=== PATIENT | female | born 1960 | race Caucasian/White ===

== ENCOUNTER 2024-10-02 05:17 | Emergency (ER) | payer SELFPAY ==
[~2024-10-02] VITALS: Ht 172.7 cm; Wt 128.4 kg
[2024-10-02 05:43] LABS: BASOPHILS # (AUTO) 0.03 K/uL (0.00-0.20); BASOPHILS % (AUTO) 0.3 % (0.0-5.0); EOSINOPHILS # (AUTO) 0.17 K/uL (0.00-0.70); EOSINOPHILS % (AUTO) 1.6 % (0.0-8.0); HEMATOCRIT 39.3 % (36-48); IMMATURE GRANULOCYTE ABSOLUTE 0.03 K/uL (0-1); LYMPHOCYTES # (AUTO) 2.9 K/uL (1.0-4.8); LYMPHOCYTES % (AUTO) 27.1 % (21.0-51.0); MEAN CORPUSCULAR HEMOGLOBIN 31.2 pg (27.0-33.0); MEAN CORPUSCULAR HGB CONC 32.8 g/dL (32.0-36.0); MEAN CORPUSCULAR VOLUME 95.2 fL (79-99); MONOCYTES # (AUTO) 1.3 K/uL (0.1-1.0); MONOCYTES % (AUTO) 12.4 % (3.0-13.0); NEUTROPHILS # (AUTO) 6.3 K/uL (1.8-7.7); NEUTROPHILS % (AUTO) 58.3 % (40.0-77.0); PLATELET COUNT (AUTO) 350 K/uL (130-400); RED BLOOD CELL COUNT(AUTO) 4.13 MIL/uL (4.00-5.50); RED CELL DISTRIBUTION WIDTH 13.1 % (11.0-15.5); WHITE BLOOD COUNT (AUTO) 10.8 K/uL (4.8-10.8)
--- NOTE | 2024-10-02 05:50 | ERN ---
General Chief Complaint: Chest Pain Stated Complaint: RT SIDED CHEST PAIN RADIATING TO BACK Time Seen by MD: 05:22 Source: patient History of Present Illness Initial Comments PATIENT IS A 64-YEAR-OLD FEMALE COMING IN TO BE EVALUATED FOR RIGHT-SIDED CHEST PAIN. PATIENT STATES THAT THE CHEST PAIN HAS BEEN ON AND OFF FOR SEVERAL MONTHS SHE WAS SEEN BEFORE AND DIAGNOSED WITH COSTOCHONDRITIS. PATIENT DOES HAVE A HISTORY OF FIBROMYALGIA BUT STATES THAT THE PAIN HAS BEEN ON AND OFF AND OF TWO DAYS AGO STARTED PRESENTING MORE OFTEN AND MORE INTENSE. Allergies: Coded Allergies: lisinopril (Unverified Allergy, Unknown, 10/02/24) Past Medical History Past Medical History: Asthma, Fibromyalgia, Hypertension, Other Medical History Other: PAD, COSTOCHONDRITIS Past Surgical History: Other, Surgical History Other: RT ARM ROS Dictation CONSTITUTIONAL: NO CHILLS, NO FEVER, NO WEAKNESS, NO DIAPHORESIS, NO MALAISE. HEAD/FACE: NO SIGNS OF TRAUMA. EENT: NO EYE PAIN, NO BLURRED VISION, NO TEARING, NO DOUBLE VISION, NO EAR PAIN, NO EAR DISCHARGE, NO NOSE PAIN, NO NASAL CONGESTION, NO THROAT PAIN, NO THROAT SWELLING, NO MOUTH PAIN. RESPIRATORY: NO COUGH, NO ORTHOPNEA, NO SOB, NO STRIDOR, NO WHEEZING. CARDIOVASCULAR: NO CHEST PAIN, NO EDEMA, NO PALPITATIONS, NO SYNCOPE. GASTROINTESTINAL/ABDOMINAL: ABDOMINAL PAIN, NO CONSTIPATION, NO DIARRHEA, NO NAUSEA, NO VOMITING. GENITOURINARY: NO ABNORMAL DISCHARGE, NO DYSURIA, NO FREQUENT URINATION, NO HEMATURIA. NO COMPLAINTS OF PAIN IN THE GENITALS. MUSCULOSKELETAL: NO BACK PAIN, NO GOUT, NO JOINT PAIN, NO JOINT SWELLING, NO MUSCLE PAIN, NO MUSCLE STIFFNESS, NO NECK PAIN. INTEGUMENTARY: NO CHANGE IN COLOR, NO CHANGE IN HAIR/NAILS, NO DRYNESS, NO LESION, NO LUMPS, NO RASH. NEUROLOGICAL/PSYCH: NO ANXIETY, NOT DEPRESSED, NO EMOTIONAL PROBLEM, NO HEADACHE, NO NUMBNESS, NO PRE-EXISTING DEFICIT, NO HISTORY OF SEIZURES, NO TREMORS, NO WEAKNESS. HEMATOLOGIC/LYMPHATIC: NOT ANEMIC, NO HISTORY OF BLOOD CLOTS, NO APPARENT BLEEDING, NO BRUISING, GLANDS NOT SWOLLEN. ALL SYSTEMS NEGATIVE, EXCEPT NOTED. Physical Exam Physical Exam Dictation VITAL SIGNS: REVIEWED. GENERAL APPEARANCE: ALERT, ORIENTED X3, NO ACUTE DISTRESS, OBESE. HEAD AND FACE: NON-TRAUMATIC. EYES: PERRL, PINK CONJUNCTIVAS, EYELID NO TRAUMA, ANTERIOR CHAMBER CLEAR. EARS: PINNAS INTACT AND NO SIGNS OF TRAUMA OR ERYTHEMA. EAR CANALS CLEAR AND NO DISCHARGE. TMS NO ERYTHEMA. NOSE: NO DISCHARGE, NO BLEEDING. OROPHARYNX: MOUTH NORMAL, TEETH NO CARIES, TONGUE PINK. PHARYNX CLEAR, NO ERYTHEMA. TONSILS NO EXUDATES, NO ABSCESSES NOTED. MUCOUS MEMBRANE MOIST. NECK: SUPPLE, NON-TENDER, NO THYROMEGALY, NO MASSES, NO JVD, NO BRUITS. BREAST: DEFERRED. CHEST: TENDERNESS, NO CREPITUS, NO PARADOXICAL MOVEMENT, NO RETRACTIONS. LUNGS: CLEAR, WELL-VENTILATED, SYMMETRIC, NO RALES, NO WHEEZING, NO RHONCHI, NO STRIDOR, GOOD BREATH SOUNDS BILATERALLY. HEART: REGULAR RATE, REGULAR RHYTHM, NO MURMUR, NO GALLOPS. VASCULAR: NO PERIPHERAL EDEMA. ABDOMEN: SOFT, POSITIVE BOWEL SOUNDS, NONDISTENDED, NO GUARDING, NONTENDER, NO REBOUND, NO MASSES NO HEPATOMEGALY, NO SPLENOMEGALY, NO JOHNSON'S SIGN, NO HERNIAS. RECTAL: DEFERRED. GENITAL: DEFERRED. NEUROLOGICAL: NORMAL SPEECH, GROSS MOTOR FUNCTION INTACT, GROSS SENSORY FUNCTION INTACT. MUSCULOSKELETAL: NECK NONTENDER, FULL RANGE OF MOTION, BACK NONTENDER, FULL RANGE OF MOTION. EXTREMITIES: NONTENDER, FULL RANGE OF MOTION. SKIN: COLOR PINK, DRY, NO TURGOR, NO RASH, NO LACERATIONS, NO ABRASIONS, NO C ONTUSIONS. LYMPHATICS: DEFERRED. Results Laboratory and Microbiology Lab and Micro Result Laboratory Tests Test 10/02/24 05:30 White Blood Count 10.8 K/uL (4.8-10.8) Red Blood Count 4.13 MIL/uL (4.00-5.50) Hemoglobin 12.9 g/dL (12.0-16.0) Hematocrit 39.3 % (36-48) Mean Corpuscular Volume 95.2 fL (79-99) Mean Corpuscular Hemoglobin 31.2 pg (27.0-33.0) Mean Corpuscular Hemoglobin Concent 32.8 g/dL (32.0-36.0) Red Cell Distribution Width 13.1 % (11.0-15.5) Platelet Count 350 K/uL (130-400) Mean Platelet Volume 9.4 fL (7.5-10.5) Immature Granulocyte % (Auto) 0.3 % (0-1) Neutrophils (%) (Auto) 58.3 % (40.0-77.0) Lymphocytes (%) (Auto) 27.1 % (21.0-51.0) Monocytes (%) (Auto) 12.4 % (3.0-13.0) Eosinophils (%) (Auto) 1.6 % (0.0-8.0) Basophils (%) (Auto) 0.3 % (0.0-5.0) Neutrophils # (Auto) 6.3 K/uL (1.8-7.7) Lymphocytes # (Auto) 2.9 K/uL (1.0-4.8) Monocytes # (Auto) 1.3 K/uL (0.1-1.0) H Eosinophils # (Auto) 0.17 K/uL (0.00-0.70) Basophils # (Auto) 0.03 K/uL (0.00-0.20) Absolute Immature Granulocyte (auto 0.03 K/uL (0-1) Nucleated Red Blood Cells 0.0 % (0.0-0.19) Prothrombin Time 10.2 SEC (9.6-11.6) Prothromb Time International Ratio 0.94 (0.85-1.15) Activated Partial Thromboplast Time 25.5 SEC (26.3-35.5) L Sodium Level 141 mmol/L (136-145) Potassium Level 4.0 mmol/L (3.5-5.1) Chloride Level 105 mmol/L (101-111) Carbon Dioxide Level 25 mmol/L (21-32) Blood Urea Nitrogen 13 mg/dL (7-18) Creatinine 1.0 mg/dL (0.5-1.0) Glomerular Filtration Rate Calc 64 mL/min (>90) Random Glucose 133 mg/dL (70-105) H Total Calcium 8.9 mg/dL (8.5-10.1) Magnesium Level 1.60 mg/dL (1.80-2.40) L Total Creatine Kinase 67 U/L (21-232) Troponin I High Sensitivity 5 ng/L (4-50) B-Type Natriuretic Peptide 44 pg/mL (0-100) Lipase 30 U/L (16-77) Labs Reviewed?: Yes EKG/XRAY/US/CT/MRI EKG Comment 10/02/2024 TIME 5:29 A.M. VENTRICULAR RATE 109 SINUS TACHYCARDIA AL [address] WAVE ELEVATION OR DEPRESSION MDM MDM: DIFFERENTIAL DIAGNOSIS: RATIONALE: TESTS CONSIDERED AND ORDERED SECONDARY TO SHARED DECISION MAKING INCLUDE: PREVIOUS OUTSIDE RECORDS REVIEWED: OLD ER VISITS. RISK OF COMPLICATION AND/OR MORBIDITY OR MORTALITY OF PATIENT MANAGEMENT: NONE MEDICATIONS-PER MEDICATION RECONCILIATION NEED FOR HOSPITALIZATION: PATIENT DOES NOT MEET CRITERIA FOR HOSPITALIZATION. NEED FOR EMERGENCY MAJOR/MINOR SURGERY: NO THERE ARE NO SOCIAL CONCERNS WITH THIS PATIENT. PRESCRIPTION DRUG MANAGEMENT PRESCRIPTIONS WILL INCLUDE SYMPTOMATIC CARE PATIENT'S PRIOR EXTERNAL MEDICAL RECORDS FROM OTHER ER VISITS WERE REVIEWED BY ME INDICATED. PRIOR TESTING AND RESULTS FROM PREVIOUS VISITS WERE REVIEWED. PRIOR TESTS WERE TAKEN INTO ACCOUNT WITH MEDICAL DECISION MAKING AND RESOURCE UTILIZATION, INDEPENDENT HISTORIAN/HISTORIANS WERE USED TO OBTAIN COMPLETE MEDICAL HISTORY. I INDEPENDENTLY INTERPRETED THE TEST THAT WERE PERFORMED, RESULTS WERE REVIEWED BY ME AND CONSIDERED FINDINGS ON RADIOLOGY IF ORDERED. MEDICAL MANAGEMENT AND EXAMINATION INTERPRETATION DISCUSSIONS WERE HAD BY ME WITH OTHER QUALIFIED HEALTHCARE PROFESSIONALS INDICATED FOR THE PATIENT'S CARE. ED Course Orders Procedure Category Date Status Time Cbc With Differential LAB 10/02/24 Complete 05:24 Prothrombin Time With LAB 10/02/24 Complete INR 05:24 B-Type Natriuretic LAB 10/02/24 Complete Peptide 05:24 Chest 1vw RAD 10/02/24 Resulted 05:24 12 Lead Ekg Tracing- EKG 10/02/24 Complete Technical 05:24 Magnesium LAB 10/02/24 Complete 05:24 Creatine Kinase, Total LAB 10/02/24 Complete 05:24 Troponin I High LAB 10/02/24 Complete Sensitivity 05:24 Urinalysis Profile LAB 10/02/24 Logged 05:24 Partial LAB 10/02/24 Complete Thromboplastin Time 05:24 Basic Metabolic Panel LAB 10/02/24 Complete 05:24 Pantoprazole 40mg Inj PHA 10/02/24 Complete (Protonix 40mg Inj 05:30 Lipase LAB 10/02/24 Complete 05:24 Magnesium 2gm Premix PHA 10/02/24 Complete 50ml (Magnesium 2gm 06:17 12 Lead Ekg Tracing- EKG 10/02/24 Complete Technical 05:28 Ct Abdomen/Pelvis W/O CT 10/02/24 Resulted Contrast 06:34 Morphine 2mg Syg PHA 10/02/24 Complete (Morphine 2mg Syg) 08:00 Ondansetron 4mg Inj PHA 10/02/24 Complete (Zofran 4mg Inj) 08:00 Current Medications Medications (Trade) Dose Ordered Sig/King Route PRN Reason Start Time Stop Time Status Last Admin Dose Admin Magnesium Sulfate 50 ml @ 0 mls/hr PROTOCOL STAT IV 10/02/24 06:17 10/02/24 06:19 DC 10/02/24 06:23 Morphine Sulfate (morPHINE 2MG SYG) 2 mg ONCE ONCE IVP 10/02/24 08:00 10/02/24 08:01 DC Ondansetron HCl (zoFRAN 4MG INJ) 4 mg ONCE ONCE IVP 10/02/24 08:00 10/02/24 08:01 DC Pantoprazole Sodium (PROTonix 40MG INJ) 40 mg ONCE ONCE IVP 10/02/24 05:30 10/02/24 05:31 DC 10/02/24 06:06 Vital Signs Date Time Temp Pulse Resp B/P (MAP) Pulse Ox O2 Delivery O2 Flow Rate FiO2 10/02/24 06:58 97 16 199/92 96 Room Air* 0 10/02/24 05:55 98.1 111 18 178/95 97 Room Air* 0 10/02/24 05:18 97.2 116 20 155/92 96 Room Air DX & DISP Disposition: Discharge Departure Impression: Primary Impression: Cholelithiases Condition: Stable Scripts Ondansetron (Ondansetron Odt) 4 Mg Tab.rapdis 4 MG PO BID for 5 Days, #1 TAB Prov: DHARMESH ROMERO MD 10/02/24 Ketorolac Tromethamine (Ketorolac Tromethamine) 10 Mg Tablet 10 MG PO BID for 5 Days, #10 TAB Prov: DHARMESH ROMERO MD 10/02/24 Referrals: NANO OSORIO MD, ISABEL MD Oct 02, 2024 05:50 DHARMESH ROMERO MD Oct 02, 2024 08:37
[2024-10-02 05:55] VITALS: TEMP 98
[2024-10-02 05:58] LABS: INR 0.94 (0.85-1.15); PROTHROMBIN TIME 10.2 SEC (9.6-11.6)
[2024-10-02 05:59] LABS: PARTIAL THROMBOPLASTIN TIME 25.5 SEC (26.3-35.5)
[2024-10-02] MEDS: PANTOPrazole 40 MG/VIAL IVP ONE (06:06)
[2024-10-02 06:10] LABS: MAGNESIUM 1.6 mg/dL (1.80-2.40)
--- NOTE | 2024-10-02 06:19 | EKG ---
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
[2024-10-02] MEDS: MAGNESIUM 2GM PREMIX 50ML 50 ML IV STA (06:23)
--- NOTE | 2024-10-02 06:23 | EKG ---
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
[2024-10-02 06:39] LABS: B-TYPE NATRIURETIC PEPTIDE 44 pg/mL (0-100)
--- NOTE | 2024-10-02 07:05 | NUR ---
REPORT RECEIVED FROM LISANDRO CARDONA. 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
--- NOTE | 2024-10-02 07:46 | NUR ---
PT ASKED BUT STATED SHE DID NOT NEED TO USE THE RESTROOM AT THIS TIME.
--- NOTE | 2024-10-02 07:59 | NUR ---
STILL PENDING REPORT CT REPORT AT THIS TIME.
--- NOTE | 2024-10-02 08:21 | HMCIMG ---
CT ABDOMEN/PELVIS W/O CONTRAST REASON: ruq pain COMPARISON: None. FINDINGS: Lung bases are clear. There are no focal liver lesions. There are normal-appearing kidneys.. Spleen and pancreas appear unremarkable. There are stones present in an otherwise normal-appearing gallbladder. Bowel loops appear unremarkable. There is no CT evidence of acute appendicitis. There is no evidence of free fluid or intraperitoneal air. There are no focal fluid collections. Aorta and retroperitoneum appear normal as do pelvic soft tissue structures. The anterior abdominal wall is intact. Osseous structures appear unremarkable. IMPRESSION: 1. Cholelithiasis without evidence of acute cholecystitis. 2. Otherwise unremarkable noncontrast CT abdomen and pelvis. CT was performed with one or more following dose reduction techniques: automated exposure control, adjustment of the mA and kv according to patient's size, or use of a iterative reconstruction technique.
--- NOTE | 2024-10-02 08:25 | HMCIMG ---
CHEST 1VW REASON: CHEST COMPARISON: None. FINDINGS: Single view of the chest was obtained. Lungs are clear. Heart size is normal. There is no pulmonary vascular congestion. Mediastinum and bony thorax appear unremarkable. IMPRESSION: 1. Normal single view chest x-ray.
[2024-10-02] MEDS ORDERED: ONDA-243 PO (08:37)
[2024-10-02] MEDS ORDERED: KETO10TA2 PO (08:37)
[2024-10-02 08:56] VITALS: BP 183/86; PULSE 80; RESP 17; O2SAT 99
[2024-10-02] MEDS: ondanSETRON 4MG INJ IVP ONE (09:03)
[2024-10-02] MEDS: morPHINE 2 MG SYG IVP ONE (09:03)
== END 2024-10-02 09:29 | disposition home or self-care (01) ==
LOC: EDH 05:17
DX: K80.20 Calculus of gallbladder without cholecystitis without obstruction (principal); I10 Essential (primary) hypertension; J45.909 Unspecified asthma, uncomplicated; M79.7 Fibromyalgia; Z88.8 Allergy status to other drugs, medicaments and biological substances; Z98.890 Other specified postprocedural states
CPT/HCPCS: 99285; 74176; 96374; 96375; 71045; 82550; 83735; 84484; 80048; 83880; 83690; 85025; 85610; 85730; 36415; 93005 ×2; J3475; J2270; J2405; J2470